=== PATIENT | female | born 1940 | race Caucasian/White ===

== ENCOUNTER 2017-05-21 05:54 | Day surgery (SDC) | payer MEDICARE, BC ==
[2017-05-15 15:39] VITALS: BMI 30.5
[~2017-05-21 05:54] MED LIST: LACTATED RINGERS 1,000 ML IV SCH; SODIUM CHLORIDE 0.9% 1,000 ML IV SCH
[2017-05-21 06:21] VITALS: TEMP 98.1
[2017-05-21] MEDS ORDERED: PROPOFOL 10 MG/ML 20 ML VIAL IV ONE (06:55)
[2017-05-21] MEDS ORDERED: LIDOCAINE 1% INJ 10MG/ML (20 ML MDV) ONE (06:55)
[2017-05-21] MEDS ORDERED: ePHEDrine SULFATE/0.9% NACL/PF 50 MG/5 ML SYRINGE IV ONE (06:55)
[2017-05-21] MEDS ORDERED: ALPRAZolam 0.5 MG TAB PO PRN (07:25)
[2017-05-21] MEDS ORDERED: SODIUM CHLORIDE 0.9% 1,000 ML IV SCH (07:30)
[2017-05-21] MEDS ORDERED: NON-FORMULARY DRUG (Omeprazole 20 MG) PO SCH (07:30)
[2017-05-21] MEDS ORDERED: LACTATED RINGERS 1,000 ML IV ONE ×2 (07:49)
--- NOTE | 2017-05-21 08:02 | CE ---
CARDIAC ELECTROPHYSIOLOGY REPORT CARDIOVERSION PROCEDURE NOTE: INDICATION: Atrial fibrillation. PROCEDURE: After I explained the procedure to the patient, its risks and complication, after obtaining sedated state per anesthesia department and performing transesophageal echocardiogram, a synchronized biphasic cardioversion using 200 joules was performed with mu-ism of normal sinus rhythm. There was no immediate complication. YEVGENIY / BATSHEVA: [id number] /
--- NOTE | 2017-05-21 08:02 | ECHOT ---
TRANSESOPHAGEAL ECHOCARDIOGRAM INDICATION: Evaluation of left atrial appendage. PROCEDURE: After explaining the procedure to the patient, its risks and complication, blood pressure, heart rate, O2 saturation was monitored. After obtaining sedated state per anesthesia department, the probe was introduced esophagus without difficulty. Images were obtained. Following that, the probe was removed. FINDINGS: Bi-atrial enlargement was noted. Left atrial appendage is normal. Spontaneous contrast was noted. The left ventricular size and systolic function are normal. The aortic valve revealed mild fibrocalcific change of the aortic cusp with preserved opening. Mitral valve, tricuspid, and pulmonic valve are normal. Descending thoracic aorta appears to be normal. Contrast bubble study revealed no evidence of shunting across the interatrial septum. No pericardial effusion was noted. Doppler, pulse wave and color Doppler were obtained revealed mild to moderate mitral with mild tricuspid and pulmonic regurgitation. There was no shunting by color Doppler study. CONCLUSION: 1. Biatrial enlargement with normal appearance of the left atrial appendage. 2. Normal left ventricular size and systolic function. 3. Iwne-[id number] mitral with mild tricuspid, aortic regurgitation, and no shunting across the interatrial septum. 4. No pericardial effusion. MMODL / IJN: [id number] /
[2017-05-21] MEDS ORDERED: DABIGATRAN 150 MG CAP PO SCH (09:00)
[2017-05-21] MEDS ORDERED: ZINC 25 MG PO SCH (09:00)
[2017-05-21] MEDS ORDERED: LEVOTHYROXINE SODIUM 50 MCG PO SCH (09:00)
[2017-05-21] MEDS ORDERED: NON-FORMULARY DRUG (Potassium Chloride [K-Tab Er] 20 MEQ) PO SCH (09:00)
[2017-05-21] MEDS ORDERED: AMIODARONE 100 MG TAB PO SCH (09:00)
[2017-05-21] MEDS ORDERED: METOPROLOL SUCCINATE (ER) 50 MG TAB.ER.24H PO SCH (09:00)
[2017-05-21] MEDS ORDERED: CHOLECALCIFEROL 1,000 UNIT TAB PO SCH (09:00)
[2017-05-21] MEDS ORDERED: VISION SHIELD PO SCH (09:00)
[2017-05-21 10:29] VITALS: BP 95/51; PULSE 44; RESP 18
[2017-05-21] MEDS ORDERED: METOPROLOL SUCCINATE (ER) 25 MG TAB.ER.24H PO SCH (18:30)
[2017-05-21] MEDS ORDERED: LATANOPROST 0.005% OPHTH DROPS 2.5 ML BTL BOTH EYES SCH (21:00)
[2017-05-21] MEDS ORDERED: PRAVASTATIN SODIUM 80 MG TAB PO SCH (21:00)
== END 2017-05-21 10:32 | disposition home or self-care (01) ==
LOC: CATHCVL 05:54
PROVIDERS: ATTEND Internal Medicine Interventional Cardiology
DX: I48.0 Paroxysmal atrial fibrillation (principal); I48.3 Typical atrial flutter; E07.9 Disorder of thyroid, unspecified; K21.9 Gastro-esophageal reflux disease without esophagitis; E78.2 Mixed hyperlipidemia; I34.0 Nonrheumatic mitral (valve) insufficiency; I36.1 Nonrheumatic tricuspid (valve) insufficiency; I37.1 Nonrheumatic pulmonary valve insufficiency; Z88.1 Allergy status to other antibiotic agents; Z88.5 Allergy status to narcotic agent; Z88.0 Allergy status to penicillin; Z88.2 Allergy status to sulfonamides; Z88.6 Allergy status to analgesic agent; Z88.8 Allergy status to other drugs, medicaments and biological substances; Z79.02 Long term (current) use of antithrombotics/antiplatelets; Z79.899 Other long term (current) drug therapy
CPT/HCPCS: 92960; 93312; 93320; 93325; 93005; J2001; J2704

== ENCOUNTER → 2017-06-23 | Outpatient (CLI) | payer MEDICARE, BC ==
--- NOTE | 2017-06-23 19:19 | CONS ---
CONSULTATION REASON FOR CONSULTATION: Insomnia. PRIMARY CARE PHYSICIAN: Dr. Nishant aZmora. This 76-year-old female patient has been having poor sleep quality. She has problems with insomnia for many years. She is having difficulty with sleep initiation and she wakes up frequently throughout the night. She goes to bed around 11:00 p.m. and sometimes it takes her up to 3 to 4 hours to fall asleep. 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 She reports excessive fatigue during the day, does not fall asleep. At times, she is able to take a nap. She has occasional heartburn at night for which she has taken proton pump inhibitors. She is not having any snoring. No waking up choking or gasping for air. No nocturia. No dry mouth. No palpitations. No heartburn. No grinding of the teeth. No anxiety or depression. She has some degree of claustrophobia. No history of substance abuse. No history of alcoholism. No history of head trauma. No excessive caffeinated beverages intake. No late dinner. No nighttime palpitations or arrhythmias and the patient has had paroxysmal atrial fibrillation for which she has undergone cardiac ablation. She at times takes Xanax which helps her in sleep initiation. PAST MEDICAL HISTORY: 1. Paroxysmal atrial fibrillation. 2. TMJ. 3. Hypothyroidism. 4. H. pylori. 5. Vertigo. 6. Varicose veins. 7. History of a SKIN THERAPIST concussion back in 1974. 8. History of pneumonia in 2006. 9. SURGICAL HISTORY: Includes arthroscopic knee surgery involving the right knee 2005, left knee 2007, right shoulder 2007, cardiac ablation 2015 and cyst removed from the breast in 1968. DRUG ALLERGIES: MULTIPLE, INCLUDING ALLERGIES TO CIPRO, CODEINE, SULFADIAZINE, PENICILLIN, DARVOCET, MACROBID, MOTRIN, BIAXIN, LIPITOR, CELEBREX, GOLD METAL, MAYBE LEVOFLOXACIN. OUTPATIENT MEDICATION LIST: Includes: 1. Amiodarone. 2. Metoprolol. 3. Xanax p.r.n. 4. Pradaxa. 5. Omeprazole and. 6. Levothyroxine. SOCIAL HISTORY: The patient is a nonsmoker. No history of alcohol. No history of IV drugs. FAMILY HISTORY: Negative for sleep apnea. REVIEW OF SYSTEMS: A 12-point review of system was done. Positive findings are all mentioned above in the history of present illness. Her current vitals are as follows: Temperature is 97.8, blood pressure 126/68, pulse 50, respirations 16, temperature 98.1, saturation 97% on room air. Weight is 163. Height is 5 feet and neck size 13-1/2 inches. GENERAL APPEARANCE: Calm, comfortable, in no acute distress. HEAD: Atraumatic, normocephalic. NECK: Supple. There is no JVD. No goiter or neck mass. Mallampati class IV. LUNGS: Clear to auscultation. HEART: Sounds regular rate and rhythm. Normal S1, S2. No S3, S4. No murmurs. ABDOMEN: Soft, nontender. No organomegaly. EXTREMITIES: No edema. No cyanosis or clubbing. SKIN: Negative for any wounds or ulceration. NEURO: OA x3. There are no focal neurological deficits. PSYCH: Negative for anxiety or depression. IMPRESSION: 1. Chronic insomnia with difficulty in sleep onset and sleep maintenance. Exact etiology is not clear. Rule out chronic psychophysiologic insomnia. Other comorbid conditions are not identified at this point. 2. Possible obstructive sleep apnea. 3. Paroxysmal atrial fibrillation. Current rhythm is sinus. 4. Hypothyroidism. 5. Temporomandibular joint. 6. Vertigo. 7. Varicose veins. 8. Remote history of central nervous system concussion. PLAN: 1. Will not commit this patient to hypnotics. 2. Proceed with a polysomnogram to assess the presence and severity of insomnia and rule out any other conditions contributing to her poor sleep quality, including NEGAR and other possibilities such as RLS. 3. Sleep hygiene measures were discussed with her at length. 4. Continue current medications. 5. We will make further recommendations based on the results of the sleep study. The patient has taken Xanax with good success. I think that is reasonable to continue for sleep induction insomnia. Will continue to follow. MMODL / IJN: [id number] /
== END | disposition home or self-care (01) ==
LOC: SLEEP 16:03
PROVIDERS: ATTEND Internal Medicine Critical Care Medicine
DX: G47.00 Insomnia, unspecified (principal); I48.0 Paroxysmal atrial fibrillation; E03.9 Hypothyroidism, unspecified; I83.90 Asymptomatic varicose veins of unspecified lower extremity; Z79.899 Other long term (current) drug therapy; Z88.1 Allergy status to other antibiotic agents; Z88.5 Allergy status to narcotic agent; Z88.0 Allergy status to penicillin; Z88.6 Allergy status to analgesic agent; Z88.8 Allergy status to other drugs, medicaments and biological substances
CPT/HCPCS: 99211

== ENCOUNTER 2017-09-11 08:55 | Day surgery (SDC) | payer MEDICARE, BC ==
[2017-09-03 08:58] VITALS: BMI 28.7
[2017-09-11 09:22] VITALS: TEMP 97.9
[2017-09-11] MEDS ORDERED: LIDOCAINE 1% INJ 10MG/ML (20 ML MDV) ONE (10:30)
[2017-09-11] MEDS ORDERED: PROPOFOL 10 MG/ML 20 ML VIAL IV ONE (10:30)
[2017-09-11] MEDS: BENZOCAINE SPRAY 1 SPRAY CAN MUCOUS MEM ONE ×2 (10:30→10:32)
[2017-09-11] MEDS ORDERED: ALPRAZolam 0.5 MG TAB PO PRN (10:55)
[2017-09-11] MEDS ORDERED: SODIUM CHLORIDE 0.9% 1,000 ML IV SCH (11:00)
[2017-09-11] MEDS ORDERED: LEVOTHYROXINE 50 MCG TAB PO SCH (11:00)
--- NOTE | 2017-09-11 11:13 | CE ---
CARDIAC ELECTROPHYSIOLOGY REPORT CARDIOVERSION PROCEDURE NOTE: INDICATION: Atrial fibrillation. PROCEDURE: After explaining the procedure to the patient, it risks and complication and after obtaining sedated state per Anesthesia Department and performing transesophageal echocardiogram, a synchronized biphasic cardioversion using 200 joules was successful in restoring normal sinus rhythm, but that did not persist. Then she underwent 2 cardioversion using 200 joules that were successful in restoring normal sinus rhythm, but the sinus rhythm did not persist and patient flipped back into atrial fibrillation. There was no immediate complication. MMODL / IJN: [id number] /
[2017-09-11] MEDS ORDERED: IV FLUID CONTINUATION 1,000 ML IV ONE (11:17)
--- NOTE | 2017-09-11 11:34 | ECHOT ---
TRANSESOPHAGEAL ECHOCARDIOGRAM INDICATION: Evaluation of the left atrial appendage. PROCEDURE: After explaining the procedure to the patient as well as the risks and the complication, blood pressure, heart rate, O2 saturation was monitored. The throat was sprayed with Cetacaine. She received sedation per the anesthesia department. Following that, the probe was introduced in the esophagus without difficulty. Images obtained. Following that, the probe was removed. There was no immediate complication. FINDINGS: Left atrial size is dilated. Left atrial appendage is normal. Left ventricular size and systolic function normal. The aortic valve revealed mild fibrocalcific change of aortic cusp with preserved opening. Mitral valve appears to be normal. Tricuspid valve appears to be normal. Descending thoracic aorta appears to be normal. Contrast bubble study revealed no shunting across the interatrial septum. No pericardial effusion was noted. Doppler pulse wave and color Doppler obtained and revealed mild to moderate mitral with mild tricuspid, aortic and pulmonic regurgitation. There was no shunting by color Doppler study. CONCLUSION: 1. Dilated left atrium with normal appearance of left atrial appendage. 2. Normal left ventricular size and systolic function. 3. Vvmu-jt-jfxbfrne mitral with mild tricuspid, aortic, and pulmonic regurgitation. 4. No evidence of shunting across the interatrial septum. MMODL / IJN: [id number] /
[2017-09-11 11:36] VITALS: RESP 16
[2017-09-11] MEDS ORDERED: CIPROFLOXACIN BOTH EARS SCH (12:00)
[2017-09-11 12:33] VITALS: BP 104/77; PULSE 74
[2017-09-11] MEDS ORDERED: NON-FORMULARY DRUG (Potassium Chloride [K-Tab Er] 20 MEQ) PO SCH (21:00)
[2017-09-11] MEDS ORDERED: LATANOPROST 0.005% OPHTH DROPS 2.5 ML BTL BOTH EYES SCH (21:00)
[2017-09-11] MEDS ORDERED: METOPROLOL SUCCINATE (ER) 25 MG TAB.ER.24H PO SCH (21:00)
[2017-09-11] MEDS ORDERED: PRAVASTATIN SODIUM 80 MG TAB PO SCH (21:00)
[2017-09-11] MEDS ORDERED: DABIGATRAN 150 MG CAP PO SCH (21:00)
[2017-09-11] MEDS ORDERED: ZINC 25 MG PO SCH (21:00)
[2017-09-11] MEDS ORDERED: VISION SHIELD PO SCH (21:00)
[2017-09-11] MEDS ORDERED: OLOPATADINE HCL LEFT EYE SCH (21:00)
[2017-09-11] MEDS ORDERED: AMIODARONE 100 MG TAB PO SCH (21:00)
[2017-09-12] MEDS ORDERED: NON-FORMULARY DRUG (Omeprazole 20 MG) PO SCH (07:30)
[2017-09-12] MEDS ORDERED: CHOLECALCIFEROL 1,000 UNIT TAB PO SCH (09:00)
[2017-09-13] MEDS ORDERED: LEVOTHYROXINE 75 MCG TAB PO SCH (10:55)
== END 2017-09-11 12:47 | disposition home or self-care (01) ==
LOC: CATHCVL 08:55
PROVIDERS: ATTEND Internal Medicine Interventional Cardiology
DX: I48.0 Paroxysmal atrial fibrillation (principal); I08.3 Combined rheumatic disorders of mitral, aortic and tricuspid valves; I48.3 Typical atrial flutter; E78.2 Mixed hyperlipidemia; E07.9 Disorder of thyroid, unspecified; H40.9 Unspecified glaucoma; H91.90 Unspecified hearing loss, unspecified ear; H35.30 Unspecified macular degeneration; Z79.890 Hormone replacement therapy; Z79.899 Other long term (current) drug therapy; Z88.6 Allergy status to analgesic agent; Z88.1 Allergy status to other antibiotic agents; Z88.5 Allergy status to narcotic agent; Z88.2 Allergy status to sulfonamides; Z88.8 Allergy status to other drugs, medicaments and biological substances; Z88.0 Allergy status to penicillin
CPT/HCPCS: 93312; 93320; 93325; 92960; J2001; J2704; 93005

== ENCOUNTER → 2017-11-10 | Outpatient (CLI) | payer MEDICARE, BC ==
--- NOTE | 2017-11-10 16:52 | PN ---
PROGRESS NOTE This is a 76-year-old female patient with paroxysmal atrial fibrillation who presented initially to me with poor sleep quality. She was having difficulties with insomnia for many years. The patient reported difficulty in sleep initiation and maintenance. Subsequently the patient was found to have obstructive sleep apnea component and the patient's AHI was 19.9. Based on that, the patient was given a CPAP titration during which the obstructive apneas were eliminated. Nevertheless, she continued to have a poor sleep efficiency. I gave her a trial of CPAP with a pressure of 7 cm of water and today the patient is coming in for further evaluation to assess overall clinical response. The patient reports marked improvement. Sleep quality she is able to sleep better. She is able to initiate sleep at times. She wakes up in the middle of the night. She is asking for a sleep aid to help her consolidate her sleep. However she reports marked improvement in sleep quality just by the use of CPAP itself. Currently she is on a CPAP pressure of 7 and her compliance data over the past 30 days showed that the patient had been utilizing her CPAP 6.8 hours per night. Leak factor is only 20 L/minute and her AHI while on treatment is down to 1.6. Her heated tubing is set at the temperature of 68 with a humidity level of 3. The patient is using an air tight fullface mask. She is benefitting from the treatment. She has some arthritic pain which probably at times wake her up from sleep in addition to a mild component of insomnia. REVIEW OF SYSTEMS: A 12-point review of system was done. Positive findings are mentioned above in the history of present illness. She has chronic arthritic pain. No altered mentation. No seizure activity. No sore throat. No headaches and no change in voice, no aerophagia. No cough or sputum production. No heartburn. No palpitation or chest pain. No nausea, vomiting or diarrhea. No dysuria, frequency, urgency or nocturia. No falls, no sleep paralysis. No anxiety or depression. PHYSICAL EXAMINATION: BP is 131/61, pulse is 45, respirations 14, weight is 161, temperature 97.1. Channing score is at 2, saturation 98% on room air. GENERAL APPEARANCE: Calm, comfortable. Head is atraumatic, normocephalic. NECK: Supple. No JVD. No goiter or neck masses. LUNGS: Diminished breath sounds bilaterally. HEART: Sounds are bradycardic yet are regular. Positive S1, S2. No S3. No murmurs. ABDOMEN: Soft, nontender. No organomegaly. EXTREMITIES: No edema. No cyanosis or clubbing. NEUROLOGIC: The patient is alert and oriented x3. There are no focal neurological deficits. PSYCHIATRIC: No anxiety or depression. SKIN: Negative for any wounds or ulceration. IMPRESSION: 1. Obstructive sleep apnea, moderate in severity with an AHI of 19.9, currently successfully being treated with a CPAP pressure of 7 cm of water. The patient is benefitting and her compliance data indicates adequate use. 2. Chronic insomnia multifactorial, in part related to obstructive sleep apnea in addition to other component such as chronic pain. 3. There is mild periodic limb movements not associated with arousals. 4. Bradycardia sinus. 5. Paroxysmal atrial fibrillation. 6. TMJ. 7. Hypothyroidism. 8. History of PHARMACEUTICAL SALES contusion. PLAN: Checked the compliance data and the patient is very compliant and she is benefitting from the treatment. Continue the treatment for now. No need for any hypnotic agents. May utilize Tylenol p.m. on an as needed basis should pain or insomnia becomes an ongoing issue. Optimize sleep hygiene measures. Continue CPAP therapy. No need for any adjustment. Will continue to follow. I am very much happy and impressed with overall treatment response. MMODL / IJN: [id number] /
== END | disposition home or self-care (01) ==
LOC: SLEEP 13:55
PROVIDERS: ATTEND Internal Medicine Critical Care Medicine
DX: G47.33 Obstructive sleep apnea (adult) (pediatric) (principal); G47.61 Periodic limb movement disorder; R00.1 Bradycardia, unspecified; I48.0 Paroxysmal atrial fibrillation; E03.9 Hypothyroidism, unspecified; M26.609 Unspecified temporomandibular joint disorder, unspecified side; G89.29 Other chronic pain; G47.09 Other insomnia

== ENCOUNTER 2018-01-12 08:53 | Inpatient (IN) | payer MEDICARE, BC ==
[2018-01-06 09:06] VITALS: BMI 29.2
[~2018-01-12 08:53] MED LIST changes: +CLINDAMYCIN 600 MG in SODIUM CHLORIDE 0.9% IRRIGATIO 250 ML IRRIGATION ONE; +CLINDAMYCIN 900 MG in DEXTROSE 5% IN WATER 50 ML IVPB ONE; -LACTATED RINGERS 1,000 ML IV SCH; -SODIUM CHLORIDE 0.9% 1,000 ML IV SCH
[2018-01-12] MEDS: SODIUM CHLORIDE 0.9% 1,000 ML IV SCH ×10 (09:30→23:57)
[2018-01-12] MEDS ORDERED: fentaNYL (PF) 50 MCG/ML 2 ML AMP ONE (11:42)
[2018-01-12] MEDS ORDERED: MIDAZOLAM 2 MG/2 ML VIAL ONE (11:42)
[2018-01-12] MEDS ORDERED: PHENYLEPHRINE-0.9% NACL SYG 1 MG/10 ML SYRINGE ONE (11:42)
[2018-01-12] MEDS ORDERED: KETAMINE 10 MG/ML 20 ML VIAL ONE (11:42)
[2018-01-12] MEDS ORDERED: PROPOFOL 10 MG/ML 20 ML VIAL IV ONE (11:42)
[2018-01-12] MEDS ORDERED: IOPAMIDOL-250 50ML BTL IV ONE (12:05)
[2018-01-12] MEDS ORDERED: LIDOCAINE 2% INJ 20 MG/ML SQ ONE (12:17)
[2018-01-12] MEDS ORDERED: LIDOCAINE 2% SYG (PF) 100 MG/5 ML SQ ONE (12:17)
[2018-01-12] MEDS ORDERED: LIDOCAINE 1% INJ 10MG/ML (10 ML MDV) SQ ONE (12:32)
[2018-01-12] MEDS ORDERED: HYDROcodone/APAP 5-325MG 1 EACH TAB PO PRN (14:24)
--- NOTE | 2018-01-12 15:22 | CE ---
CARDIAC ELECTROPHYSIOLOGY REPORT Mony Drake is a 77-year-old female who underwent a permanent pacemaker implantation for management of tachy-sidra syndrome and planning for future AV junction modification. Patient brought to the EP lab in a fasting state. Written informed consent was obtained prior to the procedure. The left shoulder area was prepped and draped as per protocol; 1% Lidocaine was used for local anesthesia. A 4 cm incision was made parallel to the deltopectoral groove, about 1.5 cm medial to it. The incision was carried down to the level of the pectoralis muscle. A subfascial pocket was made. The axillary vein was accessed at 3 different points under fluoroscopy and via appropriately-sized introducer sheaths, the following leads were placed #1 the atrial lead was a 45 cm Medtronic model #4574, serial # [id number]. The patient was in atrial fibrillation. Pacing impedance 776 ohms, waves 1.4 mV. The RV lead was Medtronic model #4074, 58 cm length and serial number [id number]. This was positioned in the RV apex. The R-waves were 5.2 mV. Pacing threshold was 0.3 V at 0.5 milliseconds. Current was 0.9 milliamperes, pacing impedance of 1247 ohms. The 10 V test negative. The third lead was placed was screwed in the HIS bundle area (cardiac septum). This was a model #3830 69 cm length and serial number [id number]. MD HIS area bundle capture was obtained and then an above 3 V at 1 millisecond. There was a septal ventricular capture obtained and between 2.0 and 3.0 V at 1 millisecond. PO HIS capture was obtained. The HIS capture was lost at 2 V at 1 millisecond. This lead was then connected to the LV port of the biventricular pacemaker. The device was then programmed to the DDDR mode with the with mode switch 09/[birth year]/1959 ppm. RESULTS: Successful dual-chamber successful permanent pacemaker implantation with physiologic pacing in the cardiac septum (HIS bundle capture). PLAN: Increase flecainide to 100 mg twice daily and increase beta blockers. MMODL / IJN: [id number] /
[2018-01-12] MEDS: LACTATED RINGERS 1,000 ML IV SCH ×2 (16:26→16:27)
[2018-01-12] MEDS: ACETAMINOPHEN IV (For NPO) 1,000 MG in EMPTY BAG 1 BAG IVPB ONE ×2 (16:29→18:13)
[2018-01-12] MEDS: PRAVASTATIN SODIUM 80 MG TAB PO SCH (18:14)
[2018-01-12] MEDS: METOPROLOL TARTRATE 25 MG TAB PO SCH (18:15)
[2018-01-12] MEDS: CLINDAMYCIN 900 MG in DEXTROSE 5% IN WATER 50 ML IVPB SCH ×4 (18:37→23:55)
[2018-01-12] MEDS: METOCLOPRAMIDE 5 MG/ML 2 ML VIAL IVP PRN (20:27)
[2018-01-12] MEDS: FLECAINIDE 50 MG TAB PO SCH (20:27)
[2018-01-12] MEDS: DABIGATRAN 150 MG CAP PO SCH (20:27)
[2018-01-13] MEDS: LACTATED RINGERS 1,000 ML IV SCH ×2 (00:33→19:39)
[2018-01-13] MEDS: SODIUM CHLORIDE 0.9% 1,000 ML IV SCH ×3 (00:33→15:54)
[2018-01-13] MEDS: ACETAMINOPHEN TAB 325 MG TAB PO PRN ×3 (00:36→17:39)
[2018-01-13] MEDS: LEVOTHYROXINE 50 MCG TAB PO SCH (04:20)
[2018-01-13] MEDS: ALPRAZolam 0.25 MG TAB PO PRN ×2 (04:20→19:48)
[2018-01-13] MEDS: CLINDAMYCIN 900 MG in DEXTROSE 5% IN WATER 50 ML IVPB SCH ×4 (06:02→13:19)
--- NOTE | 2018-01-13 07:16 | XR ---
EXAMINATION TYPE: XR chest 2V DATE OF EXAM: 01/13/2018 COMPARISON: 05/23/2017 HISTORY: Cardiac pacemaker insertion. TECHNIQUE: Frontal and lateral views of the chest are obtained. FINDINGS: There is a new 3-lead left-sided cardiac defibrillator with a right atrial lead, right christie triculomegaly and left ventricular lead. No postprocedural pneumothorax is identified. No pulmonary v ascular congestion. Cardiomediastinal silhouette is again enlarged. The osseous structures are intact . Mild multilevel degenerative changes of the thoracic spine are seen in combination with generalized osseous demineralization. IMPRESSION: Status post left-sided 3-lead cardiac device insertion without subsequent pulmonary vasc ular congestion or pneumothorax.
--- NOTE | 2018-01-13 07:41 | P.PCN ---
Preoperative Diagnosis: Physiologic septal pacing for management of tachybradycardia syndrome/sick sinus syndrome Right atrial lead, right ventricular lead, physiologic septal lead/His bundle lead
--- NOTE | 2018-01-13 08:02 | DS ---
DISCHARGE SUMMARY Mrs. Drake is a 77-year-old female patient of Dr. Root and Dr. Zamora who underwent permanent pacemaker implantation. She is doing well from a cardiac standpoint. The pacemaker site is sore. There is a very small hematoma and mild tenderness, but there is no soakage. Heart sounds are normal. Normal S1, normal S2. Irregular. Breath sounds are clear. No rhonchi. No crackles. Air entry is decreased bilaterally. Extremities are warm. Upper extremities, no edema. IMPRESSION: 1. Tachybrady syndrome. 2. Sick sinus syndrome. 3. Paroxysmal atrial fibrillation. 4. Status post permanent pacemaker implantation with physiologic septal pacing/HIS bundle pacing. SUGGEST: Increase flecainide. Increase metoprolol. Continue anticoagulation. The patient will be discharged home after completion of IV antibiotics and if her chest x-ray and pacemaker interrogation is within normal limits and follow up in the pacemaker clinic in [address] Root as scheduled. MMODL / IJN: [id number] /
[2018-01-13] MEDS: DABIGATRAN 150 MG CAP PO SCH ×2 (09:04→20:53)
[2018-01-13] MEDS: FLECAINIDE 50 MG TAB PO SCH ×2 (09:04→20:53)
[2018-01-13] MEDS: METOPROLOL TARTRATE 25 MG TAB PO SCH ×2 (09:04→20:53)
[2018-01-13] MEDS ORDERED: SODIUM CHLORIDE 0.9% 500 ML IV ONE (11:42)
[2018-01-13] MEDS ORDERED: CLINDAMYCIN 900 MG in DEXTROSE 5% IN WATER 50 ML IVPB ONE ×2 (11:58)
[2018-01-13] MEDS ORDERED: SODIUM CHLORIDE 0.9% 1,000 ML IV SCH (12:00)
[2018-01-13] MEDS: PRAVASTATIN SODIUM 80 MG TAB PO SCH (17:39)
[2018-01-14] MEDS: ACETAMINOPHEN TAB 325 MG TAB PO PRN ×2 (03:51→22:55)
[2018-01-14] MEDS: LEVOTHYROXINE 50 MCG TAB PO SCH (06:46)
[2018-01-14] MEDS: SODIUM CHLORIDE 0.9% 1,000 ML IV SCH (06:46)
[2018-01-14] MEDS: FLECAINIDE 50 MG TAB PO SCH ×2 (09:10→21:54)
[2018-01-14] MEDS: METOPROLOL TARTRATE 25 MG TAB PO SCH ×2 (09:10→21:53)
[2018-01-14] MEDS: METOCLOPRAMIDE 5 MG/ML 2 ML VIAL IVP PRN (09:32)
[2018-01-14] MEDS: ALPRAZolam 0.25 MG TAB PO PRN ×2 (09:32→22:54)
[2018-01-14] MEDS ORDERED: CLINDAMYCIN 600 MG in SODIUM CHLORIDE 0.9% IRRIGATIO 250 ML IRRIGATION ONE (12:08)
[2018-01-14] MEDS ORDERED: PHENYLEPHRINE-0.9% NACL SYG 1 MG/10 ML SYRINGE ONE (12:09)
[2018-01-14] MEDS ORDERED: KETAMINE 10 MG/ML 20 ML VIAL ONE (12:09)
[2018-01-14] MEDS ORDERED: fentaNYL (PF) 50 MCG/ML 2 ML AMP ONE (12:09)
[2018-01-14] MEDS ORDERED: IV FLUID CONTINUATION 900 ML IV ONE (12:09)
[2018-01-14] MEDS ORDERED: PROPOFOL 10 MG/ML 20 ML VIAL IV ONE (12:09)
[2018-01-14] MEDS ORDERED: MIDAZOLAM 2 MG/2 ML VIAL ONE (12:09)
[2018-01-14] MEDS ORDERED: LIDOCAINE 1% INJ 10MG/ML (20 ML MDV) ONE ×2 (12:36→12:39)
[2018-01-14] MEDS ORDERED: LIDOCAINE 1% INJ 10MG/ML (20 ML MDV) SQ ONE (12:47)
[2018-01-14] MEDS ORDERED: CLINDAMYCIN 900 MG in DEXTROSE 5% IN WATER 50 ML IVPB STA ×2 (12:51)
[2018-01-14] MEDS ORDERED: ACETAMINOPHEN IV (For NPO) 1,000 MG in EMPTY BAG 1 BAG IVPB ONE (14:03)
[2018-01-14] MEDS ORDERED: HYDROcodone/APAP 5-325MG 1 EACH TAB PO PRN (14:03)
[2018-01-14] MEDS ORDERED: ACETAMINOPHEN TAB 325 MG TAB PO PRN (14:03)
--- NOTE | 2018-01-14 14:48 | CE ---
CARDIAC ELECTROPHYSIOLOGY REPORT Mony Drake is a 77-year-old female who underwent a permanent pacemaker implantation with physiologic septal pacing for/HIS bundle pacing. Next, a backup RV lead was dislodged even though fluoroscopically, it was in acceptable position, there was non- capture at the highest output. She is brought in for implantation of a new RV lead. Patient brought to the EP lab in a fasting state. Written informed consent was obtained prior to the procedure. The left shoulder area was prepped and draped as per protocol. 1% lidocaine was used for local anesthesia. A 4 cm incision was made directly over the previous surgical site and carried down to the level of the generator. The generator was disconnected from the leads and the RV lead was freed at the level of the sleeve. Access was obtained using the under the insulation wire technique and the RV lead was then extracted, a venous sheath was placed and a new RV lead was placed. This was a screw-in lead. The RV lead that was extracted was a tined lead, which is dislodged for very stable position in the RV apex. Initially, the 58 cm Medtronic screw-in lead was positioned in the RV septum in an excellent and very stable position; however, the thresholds were very high despite a very good current of injury and would not come down for at least 10 to 15 minutes. Therefore, this lead was repositioned in the RV apex. The lead was on 58 cm, model #5076, serial #[id number]. Pacing threshold 0.7 V at 0.5 millisecond. Current of 1.0 milliamps is 792 ohms, R-waves 10 mV. We waited for at least 20 to 30 minutes to make sure that the thresholds did not rise following screw deployment and then the sheath was removed. The lead was secured and reconnected to the old generator. The patient tolerated the procedure well without any acute complications. RESULT: 1. Extraction of right ventricular tined lead on account of dislodgement from an initial very stable position in the RV apex. 2. Implantation of RV screw-in lead (Medtronic) initially in the septum but very high thresholds were noted despite an excellent position and good current of injury. Finally, this was placed in the RV apex. Good threshold of 0.7 V at 0.5 millisecond was obtained with good sensing. We waited for almost 20 to 30 minutes to make sure that there was no further rise in the RV threshold before closing of the pocket. This was an unusually long procedure for implantation of a single RV pacing lead. YEVGENIY / MATTN: [id number] /
--- NOTE | 2018-01-14 15:55 | ECHOF ---
Referral Reason:?? pericardial effusion MEASUREMENTS -------- HEIGHT: 157.5 cm WEIGHT: 72.6 kg BP: 122/81 RVIDd: 3.4 cm (< 3.3) IVSd: 1.3 cm (0.6 - 1.1) LVIDd: 4.8 cm (3.9 - 5.3) LVPWd: 1.1 cm (0.6 - 1.1) IVSs: 1.6 cm LVIDs: 3.8 cm LVPWs: 1.8 cm LAESV Index (A-L): 52.35 ml/m Ao Diam: 3.4 cm (2.0 - 3.7) AV Cusp: 1.9 cm (1.5 - 2.6) MV EXCURSION: 23.151 mm (> 18.000) MV EF SLOPE: 99 mm/s (70 - 150) EPSS: 0.8 cm MV E Nam: 1.16 m/s MV DecT: 190 ms MV A Nam: 0.28 m/s MV E/A Ratio: 4.18 AR PHT: 696 ms RAP: 5.00 mmHg RVSP: 33.21 mmHg FINDINGS -------- Sinus rhythm. This was a technically good study. The left ventricular size is normal. There is mild concentric left ventricular hypertrophy. Overa ll left ventricular systolic function is mildly impaired with, an EF between 45 - 50 %. The right ventricle is mildly enlarged. LA is severely dilated >40 ml/m2 The right atrium is normal in size. There is mild aortic valve sclerosis. There is mild aortic regurgitation. There is trace mitral regurgitation. Mild tricuspid regurgitation present. Right ventricular systolic pressure is normal at < 35 mmHg. Trace/mild (physiologic) pulmonic regurgitation. The aortic root size is normal. Normal inferior vena cava with normal inspiratory collapse consistent with estimated right atrial pre ssure of 5 mmHg. The inferior vena cava is mildly dilated. There is no pericardial effusion. CONCLUSIONS -------- 1. Sinus rhythm. 2. This was a technically good study. 3. The left ventricular size is normal. 4. There is mild concentric left ventricular hypertrophy. 5. Overall left ventricular systolic function is mildly impaired with, an EF between 45 - 50 %. 6. The right ventricle is mildly enlarged. 7. LA is severely dilated >40 ml/m2 8. The right atrium is normal in size. 9. There is mild aortic valve sclerosis. 10. There is mild aortic regurgitation. 11. There is trace mitral regurgitation. 12. Mild tricuspid regurgitation present. 13. Right ventricular systolic pressure is normal at < 35 mmHg. 14. Trace/mild (physiologic) pulmonic regurgitation. 15. The aortic root size is normal. 16. Normal inferior vena cava with normal inspiratory collapse consistent with estimated right atrial pressure of 5 mmHg. 17. The inferior vena cava is mildly dilated. 18. There is no pericardial effusion. REAL ESTATE MANAGEMENT SPECIALIST: Evelia Mccain RDCS
[2018-01-14] MEDS: DABIGATRAN 150 MG CAP PO SCH ×2 (17:56→21:54)
[2018-01-14] MEDS: CLINDAMYCIN 900 MG in DEXTROSE 5% IN WATER 50 ML IVPB SCH ×4 (18:46→22:56)
[2018-01-14] MEDS: PRAVASTATIN SODIUM 80 MG TAB PO SCH (18:46)
[2018-01-14 19:13] VITALS: RESP 16
[2018-01-15] MEDS: ACETAMINOPHEN TAB 325 MG TAB PO PRN ×2 (05:13→12:38)
[2018-01-15] MEDS: CLINDAMYCIN 900 MG in DEXTROSE 5% IN WATER 50 ML IVPB SCH ×4 (05:13→11:39)
[2018-01-15] MEDS: LEVOTHYROXINE 50 MCG TAB PO SCH (06:48)
--- NOTE | 2018-01-15 07:06 | XR ---
EXAMINATION TYPE: XR chest 2V DATE OF EXAM: 01/15/2018 COMPARISON: 01/13/2019 HISTORY: Reevaluation of lead placement. TECHNIQUE: Frontal and lateral views of the chest are obtained. FINDINGS: There is a stable appearing left-sided 3-lead cardiac defibrillator with right atrial lead, right ventricular lead, and left ventricular leads present. No pulmonary vascular congestion. No pne umothorax. No focal consolidation. The cardiac silhouette size is again enlarged. The osseous struc tures are intact but generalized demineralization is seen. IMPRESSION: Unchanged positioning of a 3-lead left-sided cardiac device with no new pulmonary vascul ar congestion or pneumothorax.
[2018-01-15] MEDS: SODIUM CHLORIDE 0.9% 1,000 ML IV SCH (08:41)
[2018-01-15] MEDS: METOPROLOL TARTRATE 25 MG TAB PO SCH (08:59)
[2018-01-15] MEDS: DABIGATRAN 150 MG CAP PO SCH (08:59)
[2018-01-15] MEDS: FLECAINIDE 50 MG TAB PO SCH (08:59)
[2018-01-15] MEDS ORDERED: PANTOPRAZOLE 40 MG TABLET PO SCH (09:00)
[2018-01-15 11:40] VITALS: BP 149/94; PULSE 85; TEMP 98.1
[2018-01-15] MEDS ORDERED: POTASSIUM CHLORIDE ER 20 MEQ TAB.ER PO SCH (17:30)
[2018-01-17] MEDS ORDERED: LEVOTHYROXINE 75 MCG TAB PO SCH (06:30)
== END 2018-01-15 14:13 | disposition home or self-care (01) | DRG 261 ==
LOC: CATHEP 08:53 → 3OBS 14:15 → CATHEP 01-14 12:54
PROVIDERS: ADMIT Internal Medicine Clinical Cardiac Electrophysiology; ATTEND Internal Medicine Clinical Cardiac Electrophysiology
PROC: 02PA0MZ Removal of Cardiac Lead from Heart, Open Approach (ICD-10-PCS; principal; 2018-01-14 12:00)
PROC: 02HK3JZ Insertion of Pacemaker Lead into Right Ventricle, Percutaneous Approach (ICD-10-PCS; 2018-01-14 12:00)
DX: T82.120A Displacement of cardiac electrode, initial encounter (principal); I48.3 Typical atrial flutter; I49.5 Sick sinus syndrome; I48.0 Paroxysmal atrial fibrillation; E78.5 Hyperlipidemia, unspecified; E07.9 Disorder of thyroid, unspecified; I10 Essential (primary) hypertension; K21.9 Gastro-esophageal reflux disease without esophagitis; F41.9 Anxiety disorder, unspecified; Z79.899 Other long term (current) drug therapy; Z79.01 Long term (current) use of anticoagulants; Z79.890 Hormone replacement therapy
CPT/HCPCS: 33208; 33216; 33225; 33234; 71046; 76000; 93306

== ENCOUNTER 2018-02-10 08:21 | Emergency (ER) | payer MEDICARE, BC ==
[2018-02-10 08:39] VITALS: RESP 18
[2018-02-10] MEDS ORDERED: SODIUM CHLORIDE 0.9% 500 ML IV STA (08:51)
--- NOTE | 2018-02-10 08:55 | ED ---
General Adult HPI - General Chief complaint: Nausea/Vomiting/Diarrhea Stated complaint: DIARRHEA, EXHAUSTION Time Seen by Provider: 02/10/18 08:43 Source: patient, RN notes reviewed Mode of arrival: ambulatory Limitations: no limitations - History of Present Illness Initial comments: This is a 77-year-old female presents emergency Department with chief complaint of weakness, diarrhea. Patient states she's had progressive fatigue and weakness when she just feels exhausted throughout the day since her discharge from the hospital in which she was inpatient for CHF and had a pacemaker placed. Patient states that they doubled her flecainide and metoprolol and felt that he may be related to her medication so she was advised to discontinue her flecainide. Patient states that she continues to take metoprolol twice a day initially she was only on once a day. Patient denies any current chest pain , shortness of breath, headache or dizziness. She states that she just doesn't have any energy she feels rundown. Patient states her last 4-5 days she's developed diarrhea which is progressively getting worse she states she is up all night with diarrhea and she states she has a lot of gas. Patient reports no fever no chills she states she has slight abdominal cramping. Denies any dysuria no hematuria. Denies any melena, hematochezia or mucus in her stool. - Related Data Home Medications Medication Instructions Recorded Confirmed ALPRAZolam [Xanax] 0.5 mg PO BID PRN 05/12/16 02/10/18 Latanoprost Ophth [Xalatan 0.005%] 1 drops BOTH EYES HS 05/12/16 02/10/18 Omeprazole [PriLOSEC] 20 mg PO DAILY 05/12/16 02/10/18 Potassium Chloride [K-Tab ER] 20 meq PO W/SUPPER 05/12/16 02/10/18 Pravastatin Sodium [Pravachol] 80 mg PO W/SUPPER 05/12/16 02/10/18 Vision Shield 1 tab PO BID 05/12/16 02/10/18 Zinc 25 mg PO BID 05/12/16 02/10/18 Levothyroxine Sodium [Synthroid] 50 mcg PO MOTUWETHFRSA 05/23/17 02/10/18 Levothyroxine Sodium [Levoxyl] 75 mcg PO ANTUNEZ 09/03/17 02/10/18 Olopatadine HCl 1 drop LEFT EYE BID 09/03/17 02/10/18 Acetaminophen/Diphenhydramine 0.5 tab PO HS PRN 01/06/18 02/10/18 [Tylenol PM Extra Strength] Cholecalciferol [Vitamin D3] 2,000 unit PO DAILY 01/06/18 02/10/18 Dabigatran [Pradaxa] 150 mg PO BID 01/06/18 02/10/18 L.acidoph,Paracasei, B.lactis 1 cap PO DAILY 01/06/18 02/10/18 [Probiotic] Acetaminophen [Tylenol] 325 - 650 mg PO Q4H PRN 02/10/18 02/10/18 Previous Rx's Medication Instructions Recorded Metoprolol Tartrate 25 mg PO BID #90 tab 01/13/18 Allergies Allergy/AdvReac Type Severity Reaction Status Date / Time aspirin Allergy Unknown Unknown Verified 02/10/18 10:04 atorvastatin Allergy MADE BACK Verified 02/10/18 10:04 PAIN WORSE azithromycin Allergy Unknown Verified 02/10/18 10:04 celecoxib [From Celebrex] Allergy Nausea & Verified 02/10/18 10:04 Vomiting ciprofloxacin [From Cipro] Allergy Nausea & Verified 02/10/18 10:04 Vomiting clarithromycin [From Biaxin] Allergy Unknown Verified 02/10/18 10:04 codeine Allergy Nausea & Verified 02/10/18 10:04 Vomiting ibuprofen Allergy Unknown Verified 02/10/18 10:04 levofloxacin [From Levaquin] Allergy Rapid Verified 02/10/18 10:04 Heart Rate methylprednisolone Allergy Rapid Verified 02/10/18 10:04 Heart Rate nitrofurantoin Allergy thrush Verified 02/10/18 10:04 [From Macrobid] Penicillins Allergy lip Verified 02/10/18 10:04 swelling propoxyphene Allergy Nausea & Verified 02/10/18 10:04 [From Darvocet-N] Vomiting Sulfa (Sulfonamide Allergy Unknown Verified 02/10/18 10:04 Antibiotics) sulfamethoxazole Allergy Unknown Verified 02/10/18 10:04 trimethoprim [From Bactrim] Allergy Unknown Verified 02/10/18 10:04 hydrocodone AdvReac Nausea & Verified 02/10/18 10:04 Vomiting METAL AdvReac TURNS Uncoded 02/10/18 08:40 HANDS BLACK Review of Systems ROS Statement: Those systems with pertinent positive or pertinent negative responses have been documented in the HPI. ROS Other: All systems not noted in ROS Statement are negative. Past Medical History Past Medical History: Cancer, Eye Disorder, GERD/Reflux, Hearing Disorder / Deafness, Hyperlipidemia, Osteoarthritis (OA), Pneumonia, Sleep Apnea/CPAP/BIPAP , Thyroid Disorder Additional Past Medical History / Comment(s): TMJ. SHARYN MACULAR DEGENERATION; GLAUCOMA. HX H-PYLORI. HX VERTIGO. VARICOSE VEINS. CHRONIC BACK PAIN, HX SKIN CANCER,, chronic insomnia, BRONCHITIS, See Dr Steen H&P, gall bladder issues, bruises easy, "sepsis after a cardioversion" History of Any Multi-Drug Resistant Organisms: None Reported Past Surgical History: Breast Surgery, Cardiac Ablation, EPS, Orthopedic Surgery , Pacemaker, Tubal Ligation Additional Past Surgical History / Comment(s): REPAIR RETINAL DETACHMENT left eye. benign CYST LT BREAST. RT SHOULDER SURG., sharyn knee arthroscopy, rt shoulder arthroscopy, sharyn cataracts, cardioversion x 2 Past Anesthesia/Blood Transfusion Reactions: Motion Sickness Past Psychological History: Anxiety Smoking Status: Never smoker Past Alcohol Use History: None Reported Past Drug Use History: None Reported - Past Family History Mother Family Medical History: Cancer Additional Family Medical History / Comment(s): leukemia Brother(s) Family Medical History: Cancer Additional Family Medical History / Comment(s): preacreas cancer Son(s) Family Medical History: Cancer Additional Family Medical History / Comment(s): skin, testicular General Exam Limitations: no limitations General appearance: alert, in no apparent distress Head exam: Present: atraumatic, normocephalic, normal inspection Neck exam: Present: normal inspection, full ROM. Absent: tenderness, meningismus, lymphadenopathy Respiratory exam: Present: normal lung sounds bilaterally, other (Incision where her pacemaker was place is well-healed there is no erythema and nontender) . Absent: respiratory distress, wheezes, rales, rhonchi, stridor Cardiovascular Exam: Present: regular rate, normal rhythm, normal heart sounds. Absent: systolic murmur, diastolic murmur, rubs, gallop, clicks GI/Abdominal exam: Present: soft, normal bowel sounds. Absent: distended, tenderness, guarding, rebound, rigid Back exam: Absent: CVA tenderness (R), CVA tenderness (L) Skin exam: Present: warm, dry, intact, normal color. Absent: rash Course Vital Signs 02/10/18 02/10/18 02/10/18 08:35 09:05 10:20 Temperature 97.9 F Pulse Rate 82 88 114 H Respiratory 18 Rate Blood Pressure 126/76 105/74 145/89 O2 Sat by Pulse 96 97 Oximetry 02/10/18 11:20 Temperature Pulse Rate 83 Respiratory Rate Blood Pressure 137/81 O2 Sat by Pulse 98 Oximetry EKG Findings - EKG Comments: EKG Findings:: EKG performed at 9:12 A. fib rate of 85 QRS 96 QT/QTC 372/442 Medical Decision Making - Medical Decision Making 77-year-old female presented emergency department for fatigue which is been ongoing diarrhea. Her diarrhea most likely is viral in nature. There is some concern for C. diff and this will be followed up on. Patient's stool was cultured. Patient is advised to increase her fluids take [id number] antidiarrheals if symptoms are worsening. She is to follow-up with her education professional on Thursday and she is advised to talk to them about her metoprolol which may be causing her to feel fatigued. She initially had her flecainide discontinued and she's not seen any improvement. Patient's questions were all answered and return parameters were discussed. - Lab Data Result diagrams: 02/10/18 08:55 02/10/18 08:55 Lab Results 02/10/18 02/10/18 02/10/18 Range/Units 08:55 08:55 08:55 WBC 3.1 L (3.8-10.6) k/uL RBC 5.19 (3.80-5.40) m/uL Hgb 14.3 (11.4-16.0) gm/dL Hct 42.7 (34.0-46.0) % MCV 82.3 (80.0-100.0) fL MCH 27.7 (25.0-35.0) pg MCHC 33.6 (31.0-37.0) g/dL RDW 14.5 (11.5-15.5) % Plt Count 130 L (150-450) k/uL Neutrophils % 60 % Lymphocytes % 21 % Monocytes % 11 % Eosinophils % 4 % Basophils % 1 % Neutrophils # 1.9 (1.3-7.7) k/uL Lymphocytes # 0.7 L (1.0-4.8) k/uL Monocytes # 0.4 (0-1.0) k/uL Eosinophils # 0.1 (0-0.7) k/uL Basophils # 0.0 (0-0.2) k/uL PT (9.0-12.0) sec INR (<1.2) APTT (22.0-30.0) sec Sodium 142 (137-145) mmol/L Potassium 4.0 (3.5-5.1) mmol/L Chloride 104 (98-107) mmol/L Carbon Dioxide 27 (22-30) mmol/L Anion Gap 11 mmol/L BUN 21 H (7-17) mg/dL Creatinine 0.82 (0.52-1.04) mg/dL Est GFR (CKD-EPI)AfAm 80 (>60 ml/min/1.73 sqM) Est GFR (CKD-EPI)NonAf 69 (>60 ml/min/1.73 sqM) Glucose 86 (74-99) mg/dL Plasma Lactic Acid Tacho 0.8 (0.7-2.0) mmol/L Calcium 9.5 (8.4-10.2) mg/dL Magnesium 1.9 (1.6-2.3) mg/dL Total Bilirubin 0.7 (0.2-1.3) mg/dL AST 34 (14-36) U/L ALT 29 (9-52) U/L Alkaline Phosphatase 52 (38-126) U/L Total Protein 6.4 (6.3-8.2) g/dL Albumin 4.2 (3.5-5.0) g/dL Urine Color Urine Appearance (Clear) Urine pH (5.0-8.0) Ur Specific Tatamy (1.001-1.035) Urine Protein (Negative) Urine Glucose (UA) (Negative) Urine Ketones (Negative) Urine Blood (Negative) Urine Nitrite (Negative) Urine Bilirubin (Negative) Urine Urobilinogen (<2.0) mg/dL Ur Leukocyte Esterase (Negative) 02/10/18 02/10/18 Range/Units 08:55 09:39 WBC (3.8-10.6) k/uL RBC (3.80-5.40) m/uL Hgb (11.4-16.0) gm/dL Hct (34.0-46.0) % MCV (80.0-100.0) fL MCH (25.0-35.0) pg MCHC (31.0-37.0) g/dL RDW (11.5-15.5) % Plt Count (150-450) k/uL Neutrophils % % Lymphocytes % % Monocytes % % Eosinophils % % Basophils % % Neutrophils # (1.3-7.7) k/uL Lymphocytes # (1.0-4.8) k/uL Monocytes # (0-1.0) k/uL Eosinophils # (0-0.7) k/uL Basophils # (0-0.2) k/uL PT 11.3 (9.0-12.0) sec INR 1.2 H (<1.2) APTT 35.2 H (22.0-30.0) sec Sodium (137-145) mmol/L Potassium (3.5-5.1) mmol/L Chloride (98-107) mmol/L Carbon Dioxide (22-30) mmol/L Anion Gap mmol/L BUN (7-17) mg/dL Creatinine (0.52-1.04) mg/dL Est GFR (CKD-EPI)AfAm (>60 ml/min/1.73 sqM) Est GFR (CKD-EPI)NonAf (>60 ml/min/1.73 sqM) Glucose (74-99) mg/dL Plasma Lactic Acid Tacho (0.7-2.0) mmol/L Calcium (8.4-10.2) mg/dL Magnesium (1.6-2.3) mg/dL Total Bilirubin (0.2-1.3) mg/dL AST (14-36) U/L ALT (9-52) U/L Alkaline Phosphatase (38-126) U/L Total Protein (6.3-8.2) g/dL Albumin (3.5-5.0) g/dL Urine Color Light Yellow Urine Appearance Clear (Clear) Urine pH 5.0 (5.0-8.0) Ur Specific Tatamy 1.011 (1.001-1.035) Urine Protein Negative (Negative) Urine Glucose (UA) Negative (Negative) Urine Ketones Negative (Negative) Urine Blood Negative (Negative) Urine Nitrite Negative (Negative) Urine Bilirubin Negative (Negative) Urine Urobilinogen <2.0 (<2.0) mg/dL Ur Leukocyte Esterase Negative (Negative) Disposition Clinical Impression: Viral diarrhea, Fatigue Disposition: HOME SELF-CARE Condition: Stable Instructions: Acute Diarrhea (ED) Additional Instructions: Please return to the Emergency Department if symptoms worsen or any other concerns. Is patient prescribed a controlled substance at d/c from ED?: No Referrals: Nishant Zamora DO [Primary Care Provider] - 1-2 days Time of Disposition: 11:37
[2018-02-10 09:12] LABS: Basophils % (A) 1 %; Eosinophils # (A) 0.1 k/uL (0-0.7); Eosinophils % (A) 4 %; HCT 42.7 % (34.0-46.0); HGB 14.3 gm/dL (11.4-16.0); Lymphocytes # (A) 0.7 k/uL (1.0-4.8); Lymphocytes % (A) 21 %; MCH 27.7 pg (25.0-35.0); MCHC 33.6 g/dL (31.0-37.0); MCV 82.3 fL (80.0-100.0); Mean Platelet Volume 6.8; Monocytes # (A) 0.4 k/uL (0-1.0); Monocytes % (A) 11 %; Neutrophils # (A) 1.9 k/uL (1.3-7.7); Neutrophils % (A) 60 %; Platelet Count 130 k/uL (150-450); RBC 5.19 m/uL (3.80-5.40); RDW 14.5 % (11.5-15.5); WBC 3.1 k/uL (3.8-10.6)
[2018-02-10 09:18] LABS: INR 1.2 (<1.2); Partial Thromboplastin Time 35.2 sec (22.0-30.0); Prothrombin Time 11.3 sec (9.0-12.0)
--- NOTE | 2018-02-10 09:38 | XR ---
EXAMINATION TYPE: XR chest 2V DATE OF EXAM: 02/10/2018 COMPARISON: 01/15/2018 HISTORY: 77-year-old female with weakness TECHNIQUE: Frontal and lateral views FINDINGS: Heart borderline enlarged. Mild elongation thoracic aorta. Diffuse interstitial prominence. No consol idation or pleural effusion. Left anterior chest wall pacemaker generator with stable 3 leads. IMPRESSION: Borderline cardiomegaly. No acute process seen.
[2018-02-10 09:43] LABS: Albumin 4.2 g/dL (3.5-5.0); Calcium 9.5 mg/dL (8.4-10.2); Magnesium 1.9 mg/dL (1.6-2.3); Total Bilirubin 0.7 mg/dL (0.2-1.3); Total Protein 6.4 g/dL (6.3-8.2)
[2018-02-10 09:57] LABS: Appearance,Urine Clear (Clear); Bilirubin,Urine Negative (Negative); Blood,Urine Negative (Negative); Color,Urine Light Yellow; Glucose,Urine (UA) Negative (Negative); Ketones,Urine Negative (Negative); Leukocyte Esterase,Urine Negative (Negative); Nitrite,Urine Negative (Negative); Protein,Urine Negative (Negative); Specific Gravity,Urine 1.011 (1.001-1.035); Urobilinogen,Urine <2.0 mg/dL (<2.0)
[2018-02-10 11:25] VITALS: BP 137/81; PULSE 83
[2018-02-10 11:46] VITALS: TEMP 97.3
[2018-02-10 13:27] LABS: Troponin I 0.013 ng/mL (0.000-0.034)
[2018-02-10 13:33] LABS: Creatine Kinase MB 2.5 ng/mL (0.0-2.4)
== END 2018-02-10 11:46 | disposition home or self-care (01) ==
LOC: EC 08:21
DX: A08.4 Viral intestinal infection, unspecified (principal); R53.83 Other fatigue; K21.9 Gastro-esophageal reflux disease without esophagitis; H91.90 Unspecified hearing loss, unspecified ear; E78.5 Hyperlipidemia, unspecified; M19.90 Unspecified osteoarthritis, unspecified site; G47.30 Sleep apnea, unspecified; E07.9 Disorder of thyroid, unspecified; H35.30 Unspecified macular degeneration; F41.9 Anxiety disorder, unspecified; Z85.828 Personal history of other malignant neoplasm of skin; Z95.0 Presence of cardiac pacemaker; Z99.89 Dependence on other enabling machines and devices; Z98.890 Other specified postprocedural states; Z98.51 Tubal ligation status; Z79.899 Other long term (current) drug therapy; Z88.0 Allergy status to penicillin; Z88.1 Allergy status to other antibiotic agents; Z88.2 Allergy status to sulfonamides; Z88.5 Allergy status to narcotic agent; Z88.6 Allergy status to analgesic agent; Z88.8 Allergy status to other drugs, medicaments and biological substances
CPT/HCPCS: 36415; 71046; 80053; 81003; 82550; 82553; 83605; 83735; 84484; 85025; 85610; 85730; 87045; 87046; 87324; 93005; 96360; 99284

== ENCOUNTER 2018-05-10 05:45 | Day surgery (SDC) | payer MEDICARE, BC ==
[2018-05-03 14:33] VITALS: BMI 29.8
[~2018-05-10 05:45] MED LIST changes: -CLINDAMYCIN 600 MG in SODIUM CHLORIDE 0.9% IRRIGATIO 250 ML IRRIGATION ONE; -CLINDAMYCIN 900 MG in DEXTROSE 5% IN WATER 50 ML IVPB ONE; +LIDOCAINE 1% 20 ML VIAL (10MG/ML) FOR IV START INTRADERMA PRN; +MIDAZOLAM 2 MG/2 ML VIAL IV PRN
[2018-05-10] MEDS ORDERED: PROPOFOL 10 MG/ML 20 ML VIAL IV ONE (07:26)
[2018-05-10] MEDS ORDERED: PHENYLEPHRINE-0.9% NACL SYG 1 MG/10 ML SYRINGE ONE (07:26)
[2018-05-10] MEDS ORDERED: ACETAMINOPHEN IV (For NPO) 1,000 MG/100 ML VIAL ONE (07:26)
[2018-05-10] MEDS ORDERED: fentaNYL (PF) 50 MCG/ML 2 ML AMP ONE (07:26)
[2018-05-10] MEDS ORDERED: MIDAZOLAM 2 MG/2 ML VIAL ONE (07:26)
[2018-05-10] MEDS ORDERED: ATROPINE SULFATE 0.1 MG/ML 10ML SYRINGE ONE (07:26)
[2018-05-10] MEDS ORDERED: ceFAZolin IN SWFI 2 GM/20 ML SYRINGE IVP STA (07:44)
[2018-05-10] MEDS ORDERED: ACETAMINOPHEN IV (For NPO) 1,000 MG in EMPTY BAG 1 BAG IVPB ONE (07:45)
[2018-05-10] MEDS ORDERED: ACETAMINOPHEN TAB 325 MG TAB PO PRN (07:45)
[2018-05-10] MEDS ORDERED: IV FLUID CONTINUATION 900 ML IV ONE (07:46)
[2018-05-10] MEDS ORDERED: ALPRAZolam 0.5 MG TAB PO PRN (07:47)
[2018-05-10] MEDS ORDERED: LIDOCAINE 1% INJ 10MG/ML (20 ML MDV) SQ ONE (08:02)
[2018-05-10] MEDS ORDERED: HEPARIN SODIUM (1,000 UNIT/ML) 1,000 UNIT in SODIUM CHLORIDE 0.9% 1,000 ML IRRIGATION ONE (09:54)
--- NOTE | 2018-05-10 10:24 | P.PCN ---
Preoperative Diagnosis: Procedure: Device interrogation with reprogramming prior to the procedure AV Node Ablation/modification. Device interrogation with reprogramming postprocedure Attempted electrical cardioversion Drug infusion Increase procedural services, duration = 113 min Patient was brought to the EP lab in a fasting state. Written, informed consent was obtained prior to the procedure. Access was obtained, sheath placed in right femoral vein. 1. Preprocedure device interrogation and reprogramming Device interrogation with reprogramming performed. Rate responsiveness was turned off and the pacing rate was reprogrammed to a backup mode prior to ablation. Tachycardia detections turned off. Lead impedance is documented, sensing and pacing thresholds performed prior to the procedure Backup pacing, VVI 40 bpm 2. Electrical cardioversion A 360 J biphasic shock was used to cardiovert the patient to sinus rhythm This was attempted twice Patient was on therapeutic anticoagulation Patient failed to convert to sinus rhythm 3. AV node ablation A Mapping/Ablation catheter was placed and right-sided AV node radiofrequency ablation/modification was performed. This was a difficult procedure and AV node modification and ablation was hard to achieve partly because of the presence of the His bundle lead which was being avoided to prevent any lead damage or damage to the conduction system beyond the point where the His bundle lead was screwed in A standard 4 mm RF catheter was first used. Mapping and Ablation was first begun posteroseptally above the coronary sinus, then to the mid septal area and then just below the proximal pole of the His bundle lead. AV node ablation was unsuccessful at the sites Successful AV esther ablation was performed with transient success above and proximal to the site with a His bundle lead had been screwed in, with a 4 mm tip ablation catheter. Despite multiple attempts and multiple transient successful ablations her AV conduction would return Therefore the CARTO system was turned on, patches placed and an irrigated tip ablation catheter was used. Been ablation was performed above the level of the hips bundle lead, just above the proximal pole, transient success was obtained With catheter was positioned just beyond this point just above and to the right of the distal pole of the His bundle lead in the AP view, successful ablation was performed. Total additional RF lesions were applied here and complete AV junctional ablation was performed The patient was pacing the His bundle selectively at a rate of 40 beats a minute Complete heart block was achieved IV atropine was given to see if the AV node conduction would improve but the AV node ablation was durable, for the duration of the procedure 4. Device programming postprocedure Patient has a His bundle lead, elective His bundle pacing was noted, threshold stable at 3 V at 1ms with stable impedances post ablation Post ablation, device reprogramming was performed. Base Pacing rate was programmed to 90 bpm. Patient's device was reprogrammed and the interrogated. RF mode turned on Vascular sheaths were removed at the end of the procedure, hemostasis was assured, the patient was then transferred to recovery room/telemetry in stable condition. Conclusions: Successful ablation of the AV node. Plan: Pacing at 90 bpm for at least 2 weeks. Telemetry monitoring for 24 hours. Continue anticoagulation. Patient tolerated the procedure well without any acute complications
--- NOTE | 2018-05-10 10:50 | P.PCN ---
Preoperative Diagnosis: Intracardiac echocardiography During RF ablation with both a 4 mm tip catheter as well as during ablation with irrigated tip catheter, there was a sudden drop in the patient's blood pressure, neck veins are prominent and therefore an intracardiac echo catheter was placed in the right ventricle. There was left frontal hypertrophy noted. There was no evidence for pericardial effusion. This was interrogated on 2 separate occasions
[2018-05-10] MEDS: SODIUM CHLORIDE 0.9% 1,000 ML IV SCH (12:53)
[2018-05-10] MEDS: LACTATED RINGERS 1,000 ML IV SCH (12:53)
[2018-05-10] MEDS: KETOTIFEN 0.025% OPHTH DROPS 5 ML BTL LEFT EYE SCH (12:54)
[2018-05-10] MEDS: METOPROLOL TARTRATE 50 MG TAB PO SCH ×2 (12:54→18:14)
[2018-05-10] MEDS: PANTOPRAZOLE 40 MG TABLET PO SCH (12:54)
[2018-05-10] MEDS: DABIGATRAN 150 MG CAP PO SCH ×2 (12:54→20:48)
[2018-05-10] MEDS: CEPHALEXIN 500 MG CAP PO SCH ×2 (14:55→23:20)
[2018-05-10] MEDS ORDERED: PRAVASTATIN SODIUM 80 MG TAB PO SCH (17:30)
[2018-05-10] MEDS ORDERED: POTASSIUM CHLORIDE ER 20 MEQ TAB.ER PO SCH (17:30)
[2018-05-10] MEDS ORDERED: LATANOPROST 0.005% OPHTH DROPS 2.5 ML BTL BOTH EYES SCH (21:00)
[2018-05-10] MEDS ORDERED: diphenhydrAMINE 25 MG CAP PO PRN (23:19)
[2018-05-10] MEDS ORDERED: diphenhydrAMINE 25 MG CAP ONE (23:21)
[2018-05-11] MEDS: KETOTIFEN 0.025% OPHTH DROPS 5 ML BTL LEFT EYE SCH ×2 (00:41→08:52)
[2018-05-11] MEDS ORDERED: diphenhydrAMINE 2% CREAM 28.4 GM TUBE TOPICAL PRN (00:51)
[2018-05-11] MEDS: SODIUM CHLORIDE 0.9% 1,000 ML IV SCH (06:23)
[2018-05-11] MEDS: LACTATED RINGERS 1,000 ML IV SCH (06:23)
[2018-05-11] MEDS: PANTOPRAZOLE 40 MG TABLET PO SCH (06:24)
[2018-05-11] MEDS ORDERED: LEVOTHYROXINE 50 MCG TAB PO SCH (06:30)
[2018-05-11 07:27] VITALS: BP 108/68; PULSE 92; RESP 16; TEMP 98.1
--- NOTE | 2018-05-11 08:36 | P.DS ---
Providers Attending physician: Truong Steen Primary care physician: Nishant [facility] Course: Patient is doing well. No chest discomfort no dizziness lightheadedness or palpitations. She is ablating in the hallways Blood pressure 108/68 mmHg respirations 16 pulse rate 90 beats a minute afebrile 98.1F Breath sounds are clear no rhonchi no crackles Heart sounds S1 and S2 normal no murmurs or gallop or rub Pulse rate 90 beats a minute Groin is healed well no hematoma no bleeding Impression Atrial fibrillation with RVR drug refractory Status post permanent pacemaker implant Status post AV junction modification Patient has a pacemaker with physiologic septal pacing Plan Discharge home today and follow-up in the device clinic in 2 weeks, follow Dr. Root within a week for a groin check Patient Condition at Discharge: Stable Plan - Discharge Summary Discharge Rx Participant: No New Discharge Prescriptions: New Metoprolol Tartrate [Lopressor] 50 mg PO BID #180 tab Discontinued Metoprolol Tartrate 75 mg PO BID No Action Latanoprost Ophth [Xalatan 0.005%] 1 drops BOTH EYES HS ALPRAZolam [Xanax] 0.5 mg PO BID PRN PRN Reason: Anxiety Zinc 25 mg PO BID Pravastatin Sodium [Pravachol] 80 mg PO W/SUPPER Potassium Chloride [K-Tab ER] 20 meq PO W/SUPPER Omeprazole [PriLOSEC] 20 mg PO DAILY Vision Shield 1 tab PO BID Levothyroxine Sodium [Synthroid] 50 mcg PO MOTUWETHFRSA Olopatadine HCl 1 drop LEFT EYE BID Cholecalciferol [Vitamin D3] 2,000 unit PO DAILY Acetaminophen/Diphenhydramine [Tylenol PM Extra Strength] 0.5 tab PO HS PRN PRN Reason: sleep Dabigatran [Pradaxa] 150 mg PO BID Acetaminophen [Tylenol] 325 - 650 mg PO Q4H PRN PRN Reason: Fever Levothyroxine Sodium [Synthroid] 75 mcg PO ANTUNEZ Cephalexin [Keflex] 500 mg PO Q12HR Discharge Medication List ALPRAZolam [Xanax] 0.5 mg PO BID PRN 05/12/16 [History] Latanoprost Ophth [Xalatan 0.005%] 1 drops BOTH EYES HS 05/12/16 [History] Omeprazole [PriLOSEC] 20 mg PO DAILY 05/12/16 [History] Potassium Chloride [K-Tab ER] 20 meq PO W/SUPPER 05/12/16 [History] Pravastatin Sodium [Pravachol] 80 mg PO W/SUPPER 05/12/16 [History] Vision Shield 1 tab PO BID 05/12/16 [History] Zinc 25 mg PO BID 05/12/16 [History] Levothyroxine Sodium [Synthroid] 50 mcg PO MOTUWETHFRSA 05/23/17 [History] Olopatadine HCl 1 drop LEFT EYE BID 09/03/17 [History] Acetaminophen/Diphenhydramine [Tylenol PM Extra Strength] 0.5 tab PO HS PRN 01/18 [History] Cholecalciferol [Vitamin D3] 2,000 unit PO DAILY 01/06/18 [History] Dabigatran [Pradaxa] 150 mg PO BID 01/06/18 [History] Acetaminophen [Tylenol] 325 - 650 mg PO Q4H PRN 02/10/18 [History] Levothyroxine Sodium [Synthroid] 75 mcg PO ANTUNEZ 05/03/18 [History] Cephalexin [Keflex] 500 mg PO Q12HR 05/10/18 [History] Metoprolol Tartrate [Lopressor] 50 mg PO BID #180 tab 05/10/18 [Rx] Follow up Appointment(s)/Referral(s): Tosin Root MD [STAFF PHYSICIAN] - 05/17/18 10:45 am (Device Check appointment is made for at 4:00pm.)
[2018-05-11] MEDS: CEPHALEXIN 500 MG CAP PO SCH (08:48)
[2018-05-11] MEDS: DABIGATRAN 150 MG CAP PO SCH (08:48)
[2018-05-11] MEDS: METOPROLOL TARTRATE 50 MG TAB PO SCH (08:48)
[2018-05-16] MEDS ORDERED: LEVOTHYROXINE 75 MCG TAB PO SCH (06:30)
== END 2018-05-11 10:00 | disposition home or self-care (01) ==
LOC: CATHEP 05:45 → 3OBS 09:53 → CATHEP 05-11 10:00
PROVIDERS: ATTEND Internal Medicine Clinical Cardiac Electrophysiology
DX: I48.1 Persistent atrial fibrillation (principal); I49.5 Sick sinus syndrome; E78.2 Mixed hyperlipidemia; Z95.0 Presence of cardiac pacemaker; Z79.890 Hormone replacement therapy; Z79.899 Other long term (current) drug therapy; Z79.02 Long term (current) use of antithrombotics/antiplatelets; Z88.6 Allergy status to analgesic agent; Z88.1 Allergy status to other antibiotic agents; Z88.5 Allergy status to narcotic agent; Z88.2 Allergy status to sulfonamides; Z88.8 Allergy status to other drugs, medicaments and biological substances
CPT/HCPCS: 93799; 92960; 93650; C1894; C1769 ×2; C1733; C1759; C1893; C1732; J2250; J2001; J0461; J3010; J1644; J0131; J2370; J2704; J0690; 93662

== ENCOUNTER → 2018-06-22 | Outpatient (CLI) | payer MEDICARE, BC ==
--- NOTE | 2018-06-22 19:58 | PN ---
PROGRESS NOTE Mony is 77 and is coming in for a compliancy check regarding her obstructive sleep apnea. The patient has paroxysmal atrial fibrillation. The patient has poor sleep quality and upon further testing she was found to have a component of obstructive sleep apnea with an AHI of 19.9. While on CPAP therapy at a pressure of 7 her sleep quality improved and the patient was feeling much better and she was waking up much more alert and refreshed during the day. She does have also a component of chronic insomnia. In summary, today's evaluation the patient is using her CPAP at a pressure of 7 cm of water. Her main complaint is some difficulty with full face mask. She is having some pain across her nose bridge and irritation and occasional leaks around the mask which is causing dryness in her eye. Sometimes she is having no dryness in her mouth. I checked the compliance data and she has been very compliant utilizing her CPAP machine every night without any interruption. Her CPAP use for more than 4 hours is 100% and she is averaging about 5.6 hours of CPAP use every night. Her leak factor is 43 L/minute. AHI while on treatment is down to 1. Despite these issues, she is feeling refreshed and alert during the day and treatment remains to be successful. REVIEW OF SYSTEMS: 12-point review of system was done. Positive findings are mentioned above history of present illness. No depression. No nasal congestion or drainage. No history of sinusitis and she has had a stye in her right eye with some ongoing right eyelid irritation. No headaches. No change in her voice. No aerophagia. No chest pain. No cough or sputum production. No heartburn. PHYSICAL EXAMINATION: BP is 127/74, pulse is 86, respirations 16, temperature 98, saturation 96% on room air. Weight is 164, height is 4 feet 11 inches, [place] score is 7, BMI 22.5. GENERAL APPEARANCE: Calm, comfortable. Head is atraumatic, normocephalic. NECK: Supple. No JVD. No goiter or neck masses. Mallampati class IV. LUNGS: Clear to auscultation. HEART: Sounds regular rhythm. Normal S1, S2. No S3. No murmurs. ABDOMEN: Soft, nontender. No organomegaly. EXTREMITIES: No edema. No cyanosis or clubbing. NEUROLOGICALLY: She is alert and oriented x3. No focal neurological deficits. PSYCHIATRIC: Appropriate mood and affect. IMPRESSION: 1. Obstructive sleep apnea, moderate in severity, AHI of 19.9, currently on CPAP pressure of 7. 2. Chronic insomnia improved with CPAP therapy. 3. Mild periodic limb movements. 4. Paroxysmal atrial fibrillation, currently in sinus. 5. Temporomandibular joint. 6. Hypothyroidism. 7. History of central nervous system contusion. 8. Leaks around the full-face mask. PLAN: We went through an extensive search and we utilized various fullface masks and the patient was not able to tolerate any one of them. Ultimately we decided to use Brevida nose pillow along with a chin strap. She liked this option. This was tried in the office and she was able to tolerate it without any major difficulties. The prescription was given and the patient was seen back in followup to make sure this is the right mask interface that she would like to utilize in the future. Her pressure will be kept at 7 cm of water. Encourage weight loss. Implement good sleep hygiene measures. Will continue to follow. ZOEL / MATTN: [id number] /
== END ==
LOC: SLEEP 15:23
PROVIDERS: ATTEND Internal Medicine Critical Care Medicine
DX: G47.33 Obstructive sleep apnea (adult) (pediatric) (principal); I48.0 Paroxysmal atrial fibrillation; E03.9 Hypothyroidism, unspecified; Z86.69 Personal history of other diseases of the nervous system and sense organs; Z99.89 Dependence on other enabling machines and devices

== ENCOUNTER → 2018-08-13 | Outpatient (CLI) | payer MEDICARE, BC ==
[2018-08-13 13:59] LABS: HCT 44.9 % (34.0-46.0); HGB 14.4 gm/dL (11.4-16.0); MCH 26.8 pg (25.0-35.0); MCV 83.7 fL (80.0-100.0); Mean Platelet Volume 6.2; Platelet Count 221 k/uL (150-450); RBC 5.36 m/uL (3.80-5.40); RDW 15.2 % (11.5-15.5); WBC 6.1 k/uL (3.8-10.6)
[2018-08-13 14:15] LABS: Potassium 4.8 mmol/L (3.5-5.1)
== END ==
LOC: LABPAT 13:14
PROVIDERS: ATTEND Internal Medicine Clinical Cardiac Electrophysiology
DX: Z01.812 Encounter for preprocedural laboratory examination (principal); I48.1 Persistent atrial fibrillation
CPT/HCPCS: 36415; 80051; 82565; 82947; 84520; 85027

== ENCOUNTER 2018-08-17 12:51 | Day surgery (SDC) | payer MEDICARE, BC ==
[2018-08-16 09:03] VITALS: BMI 31.8
[2018-08-17] MEDS: SODIUM CHLORIDE 0.9% 1,000 ML IV SCH (13:35)
[2018-08-17] MEDS ORDERED: CLINDAMYCIN 600 MG in DEXTROSE 5% IN WATER 50 ML IVPB STA ×2 (15:01)
[2018-08-17] MEDS ORDERED: MIDAZOLAM 2 MG/2 ML VIAL ONE (17:11)
[2018-08-17] MEDS ORDERED: PROPOFOL 10 MG/ML 20 ML VIAL IV ONE (17:11)
[2018-08-17] MEDS ORDERED: ATROPINE SULFATE 0.1 MG/ML 10ML SYRINGE ONE (17:11)
[2018-08-17] MEDS ORDERED: PHENYLEPHRINE-0.9% NACL SYG 1 MG/10 ML SYRINGE ONE (17:11)
[2018-08-17] MEDS ORDERED: fentaNYL (PF) 50 MCG/ML 2 ML AMP ONE (17:11)
[2018-08-17] MEDS ORDERED: HEPARIN SODIUM (1,000 UNIT/ML) 1,000 UNIT in SODIUM CHLORIDE 0.9% 1,000 ML IRRIGATION ONE (17:30)
[2018-08-17] MEDS ORDERED: LIDOCAINE 1% INJ 10MG/ML (20 ML MDV) ONE (17:32)
[2018-08-17] MEDS ORDERED: LIDOCAINE 1% INJ 10MG/ML (20 ML MDV) SQ ONE (17:40)
[2018-08-17] MEDS ORDERED: ACETAMINOPHEN TAB 325 MG TAB PO PRN (18:12)
[2018-08-17] MEDS ORDERED: HYDROcodone/APAP 5-325MG 1 EACH TAB PO PRN (18:12)
--- NOTE | 2018-08-17 18:14 | P.PCN ---
Preoperative Diagnosis: Procedure: Device interrogation with reprogramming prior to the procedure Cardioversion for atrial fibrillation AV Node Ablation/modification. Device interrogation with reprogramming postprocedure Patient was brought to the EP lab in a fasting state. Written, informed consent was obtained prior to the procedure. Access was obtained, sheath placed in right femoral vein. 1. Preprocedure device interrogation and reprogramming Device interrogation with reprogramming performed. Rate responsiveness was turned off and the pacing rate was reprogrammed to a backup mode prior to ablation. Tachycardia detections turned off. Lead impedance is documented, sensing and pacing thresholds performed prior to the procedure Backup pacing, VVI 40 bpm 2. Electrical cardioversion A 360 J biphasic shock was used to cardiovert the patient to sinus rhythm Thereafter mapping of the AV node was performed, His bundle identified and RF ablation performed Patient was on therapeutic anticoagulation Patient over to back into atrial fibrillation within a few minutes 3. AV node ablation A Mapping/Ablation catheter was placed and right-sided AV node radiofrequency ablation/modification was performed. Complete heart block was achieved with occasional junctional escape rhythm above 40 bpm 4. Device programming postprocedure Post ablation, device reprogramming was performed. Base Pacing rate was programmed to 90 bpm. Patient's device was reprogrammed and the interrogated. RF mode turned on Vascular sheaths were removed at the end of the procedure, hemostasis was assured, the patient was then transferred to recovery room/telemetry in stable condition. Conclusions: Successful ablation of the AV node. Plan: Pacing at 90 bpm for at least 3 weeks. Telemetry monitoring for 24-48 hours. Continue anticoagulation. Patient tolerated the procedure well without any acute complications
[2018-08-17 19:52] VITALS: RESP 18
[2018-08-17] MEDS ORDERED: ACETAMINOPHEN IV (For NPO) 1,000 MG in EMPTY BAG 1 BAG IVPB ONE (20:00)
[2018-08-17] MEDS: METOPROLOL TARTRATE 50 MG TAB PO SCH (20:41)
[2018-08-17] MEDS: DABIGATRAN 150 MG CAP PO SCH (20:41)
[2018-08-17] MEDS: LEVOTHYROXINE 50 MCG TAB PO SCH (20:41)
[2018-08-18 04:15] VITALS: TEMP 97.7
[2018-08-18] MEDS ORDERED: PANTOPRAZOLE 40 MG TABLET PO SCH (07:30)
[2018-08-18 07:39] VITALS: BP 123/82; PULSE 94
[2018-08-18] MEDS: DABIGATRAN 150 MG CAP PO SCH (07:49)
[2018-08-18] MEDS: METOPROLOL TARTRATE 50 MG TAB PO SCH (07:49)
[2018-08-18] MEDS: SODIUM CHLORIDE 0.9% 1,000 ML IV SCH (07:52)
--- NOTE | 2018-08-18 08:28 | P.DS ---
Providers Attending physician: Truong Steen Primary care physician: [facility] Course: Patient is doing well. No chest discomfort dizziness lightheadedness. Groin is healed well there is no hematoma On examination she is afebrile 97.7F pulse rate 90 beats a minute her pacemaker is programmed to VVIR 90-120 bpm post AV node ablation Number respirations blood pressure normal 123/84 mmHg Normal heart sounds no murmurs regular Breath sounds are clear no rhonchi no crackles Abdomen soft No lower extremity edema Impression Atrial fibrillation with RVR refractory to treatment Status post permanent pacemaker implantation with His bundle pacing with excellent thresholds Status post AV node ablation and stable pacing thresholds following that Pacemaker has been programmed to VVIR 90-120 bpm for the next 3 weeks Follow-up in 5 days for a groin check with jared and follow-up in the device clinic in 3 weeks for reprogramming of the permanent pacemaker to 60-1:30 bpm She should be paced at 90 beats a minute based pacing rate for the next 3 weeks Anticoagulants to continue for stroke prevention Patient Condition at Discharge: Stable Plan - Discharge Summary Discharge Rx Participant: No New Discharge Prescriptions: Continue Latanoprost Ophth [Xalatan 0.005%] 1 drops BOTH EYES HS ALPRAZolam [Xanax] 0.5 mg PO BID PRN PRN Reason: Anxiety Zinc 25 mg PO BID Pravastatin Sodium [Pravachol] 80 mg PO W/SUPPER Potassium Chloride [K-Tab ER] 20 meq PO W/SUPPER Omeprazole [PriLOSEC] 20 mg PO DAILY Vision Shield 1 tab PO BID Levothyroxine Sodium [Synthroid] 50 mcg PO MOTUWETHFRSA Cholecalciferol [Vitamin D3] 2,000 unit PO DAILY Dabigatran [Pradaxa] 150 mg PO BID Levothyroxine Sodium [Synthroid] 75 mcg PO ANTUNEZ Metoprolol Tartrate [Lopressor] 50 mg PO BID #180 tab Azelastine HCl [Optivar 0.05% Ophth Soln] 1 drop LEFT EYE BID Discharge Medication List ALPRAZolam [Xanax] 0.5 mg PO BID PRN 05/12/16 [History] Latanoprost Ophth [Xalatan 0.005%] 1 drops BOTH EYES HS 05/12/16 [History] Omeprazole [PriLOSEC] 20 mg PO DAILY 10/10/16 [History] Potassium Chloride [K-Tab ER] 20 meq PO W/SUPPER 05/12/16 [History] Pravastatin Sodium [Pravachol] 80 mg PO W/SUPPER 05/12/16 [History] Vision Shield 1 tab PO BID 05/12/16 [History] Zinc 25 mg PO BID 05/12/16 [History] Levothyroxine Sodium [Synthroid] 50 mcg PO MOTUWETHFRSA 05/23/17 [History] Cholecalciferol [Vitamin D3] 2,000 unit PO DAILY 01/06/18 [History] Dabigatran [Pradaxa] 150 mg PO BID 01/06/18 [History] Levothyroxine Sodium [Synthroid] 75 mcg PO ANTUNEZ 05/03/18 [History] Metoprolol Tartrate [Lopressor] 50 mg PO BID #180 tab 05/10/18 [Rx] Azelastine HCl [Optivar 0.05% Ophth Soln] 1 drop LEFT EYE BID 08/16/18 [History] Follow up Appointment(s)/Referral(s): Tosin Root MD [STAFF PHYSICIAN] - As Needed (Device clinic follow-up in [address] Root as previously scheduled) Activity/Diet/Wound Care/Special Instructions: Post EP study - Ablation instructions 1. Keep access sites dry for 2 days. 2. No heavy lifting or straining for 2 days. 3. Avoid bending the hips repeatedly for 2 days. 4. You may go up and down stairs slowly Call if the following is noted 1. Bleeding, increasing swelling or pain at the access sites. 2. Increasing chest discomfort, especially upon taking a deep breath. 3. Increasing shortness of breath, at rest or with exertion. 4. Undue cough / phlegm 5. Difficulty or pain while swallowing. 6. Pain or change in color in the extremities. 7. Fever, chills, rigors. 8. Increasing headache or neurologic symptoms. 9. Dizziness, fainting, palpitations Discharge Disposition: HOME SELF-CARE
[2018-08-18] MEDS ORDERED: PRAVASTATIN SODIUM 80 MG TAB PO SCH (17:30)
[2018-08-22] MEDS ORDERED: LEVOTHYROXINE 75 MCG TAB PO SCH (06:30)
== END 2018-08-18 10:40 | disposition home or self-care (01) ==
LOC: CATHEP 12:51 → 1SOBS 18:24 → CATHEP 08-18 10:40
PROVIDERS: ATTEND Internal Medicine Clinical Cardiac Electrophysiology
DX: I49.5 Sick sinus syndrome (principal); I48.0 Paroxysmal atrial fibrillation; I48.3 Typical atrial flutter; Z95.0 Presence of cardiac pacemaker; E78.5 Hyperlipidemia, unspecified; F41.9 Anxiety disorder, unspecified; H40.9 Unspecified glaucoma; Z79.02 Long term (current) use of antithrombotics/antiplatelets; Z79.890 Hormone replacement therapy; Z79.899 Other long term (current) drug therapy; Z88.6 Allergy status to analgesic agent; Z88.1 Allergy status to other antibiotic agents; Z88.5 Allergy status to narcotic agent; Z88.0 Allergy status to penicillin; Z88.2 Allergy status to sulfonamides; Z88.8 Allergy status to other drugs, medicaments and biological substances
CPT/HCPCS: 92960; 93650; C1894; C1769 ×2; C1893; C1732; J2250; J2001; J0461; J3010; J1644; J0131; J2370; J2704

== ENCOUNTER → 2021-07-11 | Outpatient (CLI) | payer MEDICARE, BC ==
[2021-07-11 12:00] LABS: Basophils % (A) 1 %; Eosinophils # (A) 0.1 k/uL (0-0.7); Eosinophils % (A) 4 %; HGB 13.9 gm/dL (11.4-16.0); Lymphocytes # (A) 0.8 k/uL (1.0-4.8); Lymphocytes % (A) 20 %; MCH 27.9 pg (25.0-35.0); MCHC 32.3 g/dL (31.0-37.0); MCV 86.4 fL (80.0-100.0); Mean Platelet Volume 7.5; Monocytes # (A) 0.4 k/uL (0-1.0); Monocytes % (A) 10 %; Neutrophils # (A) 2.5 k/uL (1.3-7.7); Neutrophils % (A) 64 %; Platelet Count 161 k/uL (150-450); RBC 4.98 m/uL (3.80-5.40); WBC 3.9 k/uL (3.8-10.6)
[2021-07-11 12:37] LABS: ALT 19 U/L (4-34); AST 23 U/L (14-36); African American GFR (CKD) 84 (>60 ml/min/1.73 sqM); Albumin/Globulin Ratio 1.7; Alkaline Phosphatase 65 U/L (38-126); Anion Gap 8 mmol/L; Bilirubin,Unconjugated 0.3 mg/dL (0.0-1.1); Blood Urea Nitrogen 21 mg/dL (7-17); Calcium 9.2 mg/dL (8.4-10.2); Carbon Dioxide 26 mmol/L (22-30); Chloride 104 mmol/L (98-107); Globulin 2.4 g/dL; Glucose 121 mg/dL (74-99); Non-African American GFR(CKD) 73 (>60 ml/min/1.73 sqM); Potassium 4.4 mmol/L (3.5-5.1); Sodium 138 mmol/L (137-145); Total Bilirubin 0.4 mg/dL (0.2-1.3); Total Protein 6.4 g/dL (6.3-8.2)
[2021-07-11 12:49] LABS: Creatine Kinase MB 3.2 ng/mL (0.0-2.4); Troponin I 0.015 ng/mL (0.000-0.034)
[2021-07-11 12:57] LABS: T4, Free (Free Thyroxine) 1.46 ng/dL (0.78-2.19)
[2021-07-11 19:57] LABS: % Iron Saturation 10.11 (12.00-45.00); Iron 53 ug/dL (50-170); Total Iron Binding Capacity 519 ug/dL (228-460)
[2021-07-11 20:30] LABS: Insulin Level 62.9 mIU/mL (3.0-25.0)
[2021-07-12 03:41] LABS: C-Peptide 8.77 ng/mL (0.81-3.85)
== END | disposition home or self-care (01) ==
LOC: LABWHC1 11:01
PROVIDERS: ATTEND Nurse Practitioner Family
DX: E16.2 Hypoglycemia, unspecified (principal); E03.8 Other specified hypothyroidism; R53.83 Other fatigue; R94.31 Abnormal electrocardiogram [ECG] [EKG]
CPT/HCPCS: 36415; 80048; 80076; 82553; 82607; 82746; 83525; 83540; 83550; 83880; 83970; 84439; 84443; 84480; 84484; 84681; 85025

== ENCOUNTER 2022-06-27 05:57 | Day surgery (SDC) | payer MEDICARE, BC ==
[~2022-06-27 05:57] MED LIST changes: +LACTATED RINGERS 1,000 ML IV SCH; -LIDOCAINE 1% 20 ML VIAL (10MG/ML) FOR IV START INTRADERMA PRN; -MIDAZOLAM 2 MG/2 ML VIAL IV PRN; +SODIUM CHLORIDE 0.9% 1,000 ML IV SCH
[2022-06-27 06:32] LABS: Glucose,Whole Blood 92 mg/dL (70-110)
[2022-06-27 06:34] VITALS: RESP 18; TEMP 98.1
[2022-06-27 06:39] LABS: Basophils # (A) 0.1 k/uL (0-0.2); Basophils % (A) 1 %; Eosinophils # (A) 0.2 k/uL (0-0.7); Eosinophils % (A) 4 %; HCT 42.8 % (34.0-46.0); HGB 14.4 gm/dL (11.4-16.0); Lymphocytes # (A) 1.2 k/uL (1.0-4.8); Lymphocytes % (A) 25 %; MCH 26.8 pg (25.0-35.0); MCHC 33.6 g/dL (31.0-37.0); MCV 79.6 fL (80.0-100.0); Mean Platelet Volume 7.5; Monocytes # (A) 0.5 k/uL (0-1.0); Monocytes % (A) 11 %; Neutrophils # (A) 2.7 k/uL (1.3-7.7); Neutrophils % (A) 57 %; Platelet Count 162 k/uL (150-450); RBC 5.38 m/uL (3.80-5.40); RDW 14.1 % (11.5-15.5); WBC 4.8 k/uL (3.8-10.6)
[2022-06-27] MEDS ORDERED: ceFAZolin 1 GM in SODIUM CHLORIDE 0.9% IRRIG BTL 250 ML IRRIGATION PRN (07:00)
[2022-06-27] MEDS ORDERED: ONDANSETRON 4 MG/2 ML VIAL ONE (07:20)
[2022-06-27] MEDS ORDERED: diphenhydrAMINE 50 MG/ML 1 ML VIAL ONE (07:20)
[2022-06-27] MEDS ORDERED: MIDAZOLAM 2 MG/2 ML VIAL ONE (07:20)
[2022-06-27] MEDS ORDERED: DEXAMETHASONE SOD PHOSPHATE 10 MG/ML 1 ML VIAL ONE (07:20)
[2022-06-27] MEDS ORDERED: fentaNYL (PF) 50 MCG/ML 2 ML AMP ONE (07:20)
[2022-06-27 07:45] LABS: Potassium 4.4 mmol/L (3.5-5.1)
[2022-06-27] MEDS ORDERED: LIDOCAINE 1% INJ 10MG/ML (30 ML VIAL-PF) SQ ONE ×2 (08:06)
[2022-06-27] MEDS ORDERED: ACETAMINOPHEN TAB 325 MG TAB PO PRN (09:00)
[2022-06-27 12:48] VITALS: BP 109/53; PULSE 51
[2022-06-27] MEDS ORDERED: DABIGATRAN 150 MG CAP PO SCH (21:00)
[2022-06-27] MEDS ORDERED: METOPROLOL TARTRATE 50 MG TAB PO SCH (21:00)
--- NOTE | 2022-08-07 11:55 | P.EPPROC ---
- EP Procedure Note Electrophysiology Procedure Note: Diagnosis Biventricular pacemaker at [facility], normal battery depletion Procedure Biventricular pacemaker generator change Details Patient was brought to the EP lab in a fasting state. Written informed consent was obtained prior to the procedure. Conscious sedation provided by anesthesia team IV antibiotics administered. Local anesthesia administered. A 4 cm incision made in the pectoral area. Subfascial pocket made. Chronic device explanted Leads interrogated. New biventricular pacemaker generator implanted. Atrial lead chronically positioned the right atrial appendage. P waves 2.0 mV, pacing threshold 0.25 V at 0.4 ms and pacing impedance 475 ohms RV lead chronically positioned in the RV septum. Pacing threshold 0.75 V at 0.4 ms His bundle lead threshold 3.25 V at 1.5 ms pacing impedance 456 ohms Biventricular pacemaker device connected to the leads and placed in the subfascial pocket Kiana [employer]-P Patient tolerated the procedure well without acute complications Programming: DDDR 60-1:30 bpm, professional His bundle pacing programmed
== END 2022-06-27 12:50 | disposition home or self-care (01) ==
LOC: CATHEP 05:57
PROVIDERS: ATTEND Internal Medicine Clinical Cardiac Electrophysiology
DX: Z45.018 Encounter for adjustment and management of other part of cardiac pacemaker (principal)
CPT/HCPCS: 33229; 80048; 85025; C2621; J2250; J1200; J1100; J0690; J2405; J2001; J3010